=== PATIENT | female | born 1945 | race Caucasian/White ===

== ENCOUNTER 2018-07-17 15:01 | Observation (INO) | payer MEDICARE ==
[~2018-07-17] VITALS: Ht 157.5 cm; Wt 70.5 kg
--- NOTE | 2018-07-17 15:07 | NUR ---
BIB PRIVATE VEHICLE, AND WC TO ER #[id number]. PATIENT HAD SYNCOPAL EPISODE ON THE WAY HOME FROM HAVING AN ENDOSCOPY. PATIENT IS AROUSABLE, BUT LETHARGIC. AT THE BEDSIDE.
[2018-07-17 15:16] LABS: BASOPHILS % (AUTO) 0.4 % (0-1); EOSINOPHILS # (AUTO) 0.1 X10'3 (0-0.9); EOSINOPHILS % (AUTO) 0.8 % (0-6); HEMATOCRIT 42.2 % (35.0-45.0); HEMOGLOBIN 14.2 g/dl (12.0-16.0); LYMPHOCYTES # (AUTO) 3.6 X10'3 (1.1-4.8); LYMPHOCYTES % (AUTO) 42.3 % (21-51); MEAN CORPUSCULAR HGB CONC 33.7 g/dL (33.0-36.5); MEAN PLATELET VOLUME 8.3 FL (7.4-10.4); MONOCYTES # (AUTO) 0.6 X10'3 (0-0.9); MONOCYTES % (AUTO) 7.1 % (2-12); NEUTROPHILS # (AUTO) 4.2 X10'3 (1.8-7.7); NEUTROPHILS % (AUTO) 49.4 % (42-75); PLATELET COUNT 270 X10'3 (140-440); RED BLOOD COUNT 4.75 X10'6 (4.20-5.60); RED CELL DISTRIBUTION WIDTH 12.3 % (11.5-14.5); WHITE BLOOD COUNT 8.4 X10'3 (4.5-11.0)
[2018-07-17] MEDS ORDERED: ondansetron/PF 4mg/2ml inj IV ONE (15:20)
[2018-07-17 15:29] LABS: ALANINE AMINOTRANSFERASE 22 U/L (12-78); ALBUMIN 3.7 G/DL (3.4-5.0); ALBUMIN/GLOBULIN RATIO 1.1 (1.1-1.5); ALKALINE PHOSPHATASE 66 IU/L (46-116); ANION GAP 8 (8-16); ASPARTATE AMINO TRANSFERASE 17 U/L (10-37); BILIRUBIN,TOTAL 0.4 MG/DL (0.1-1.0); BLOOD UREA NITROGEN 6 MG/DL (7-18); BUN/CREATININE RATIO 10.5 (6.6-38.0); CHLORIDE 105 MMOL/L (99-107); CREATININE 0.57 MG/DL (0.40-0.90); GLUCOSE 124 MG/DL (70-104); POTASSIUM 3.6 MMOL/L (3.5-5.1); SODIUM 140 MMOL/L (135-145); TOTAL CARBON DIOXIDE 27.5 MMOL/L (24-32); TOTAL PROTEIN 7.2 G/DL (6.4-8.2); eGFR > 90 ML/MIN
[2018-07-17 15:32] LABS: INR 1.1 INR; PARTIAL THROMBOPLASTIN TIME 23 SECONDS (22-32); PROTHROMBIN TIME 10.7 SECONDS (9.0-12.0)
[2018-07-17] MEDS ORDERED: ONDA4TAB6 PO (16:16)
--- NOTE | 2018-07-17 16:20 | NUR ---
ORTHOSTATIC VITALS ATTEMPTED. PATIENT VERY DIZZY/SYNCOPAL WHEN ASSISTED TO SITTING POSITION. BP IN RECLINING POSITION 138/65.
[2018-07-17] MEDS ORDERED: ondansetron/PF 4mg/2ml inj IV PRN (16:45)
[2018-07-17] MEDS ORDERED: mag hydrox/Alum hydrox/simeth 30ml oral suspension PO PRN (16:45)
[2018-07-17] MEDS ORDERED: acetaminophen 325mg tablet PO PRN ×2 (16:45)
[2018-07-17] MEDS ORDERED: magnesium hydroxide 30ml (MOM) UD suspension PO PRN (16:45)
[2018-07-17] MEDS ORDERED: magnesium 4gm in 100ml NS 100 ML IV PRN (16:45)
[2018-07-17] MEDS ORDERED: potassium Cl 20 mEq SR tablet PO PRN ×2 (16:45)
[2018-07-17] MEDS ORDERED: magnesium Cl slow-release 64mg tablet PO PRN (16:45)
[2018-07-17] MEDS ORDERED: potassium Cl 40MEQ/NS 500ml 500 ML IV PRN ×2 (16:45)
[2018-07-17] MEDS ORDERED: magnesium 2GM in 50ml NS 50 ML IV PRN (16:45)
[2018-07-17] MEDS: normal saline 1000ml 1,000 ML IV SCH (17:00)
--- NOTE | 2018-07-17 17:26 | NUR ---
UP TO BSC AND URINATED LARGE AMOUNT. HOSPITALIST HERE TO SEE AND INTERVIEW PATIENT.
[2018-07-17] MEDS ORDERED: TRAZ-218 PO (17:43)
[2018-07-17] MEDS ORDERED: ALPR-623 PO (17:43)
[2018-07-17] MEDS ORDERED: ALPRAZolam 0.25mg tablet PO PRN (19:05)
[2018-07-17] MEDS ORDERED: traZODone 50mg tablet PO PRN (19:05)
--- NOTE | 2018-07-17 19:55 | NUR ---
Received Report in regards to patient from Bill SILVA. States patient is alert and oriented. Will asses when she arrives.
[2018-07-17 20:00] VITALS: BP_SYST 133; BP_SYST 140; BP_SYST 149; BP_DIAS 63; BP_DIAS 68; BP_DIAS 70
[2018-07-17] MEDS: famotidine 20mg tablet PO SCH (20:00)
--- NOTE | 2018-07-17 20:38 | NUR ---
Patient states that she is on trial off of her antacids due to possible false negative H. Pylori. States has had H. Pylori 3 times prior. Refused pepcid at this time. Will continue to monitor.
[2018-07-18] VITALS: BP 151/65
--- NOTE | 2018-07-18 | NUR ---
During assessment question patient states that she has had syncopal episodes when she has low blood sugar. Checked blood sugar which was 86 provided snack. Patient states that last times she had burning and indigeestion like she is having now she had to have stent placed. States now that she has numbness and tingling in her right forearm to hand and stiffness and from groin to toes on medial side of right leg. Notified Dr. Fuentes due to new symptoms, states start neuro checks. Notified him that the first set is negative. Will continue to monitor.
[2018-07-18] MEDS: normal saline 1000ml 1,000 ML IV SCH (03:05)
[2018-07-18 03:46] LABS: ALBUMIN 2.7 G/DL (3.4-5.0); ANION GAP 7 (8-16); BLOOD UREA NITROGEN 8 MG/DL (7-18); BUN/CREATININE RATIO 12.7 (6.6-38.0); CALCIUM 8.1 MG/DL (8.5-10.1); CHLORIDE 111 MMOL/L (99-107); CREATININE 0.63 MG/DL (0.40-0.90); GLUCOSE 97 MG/DL (70-104); MAGNESIUM 1.8 MG/DL (1.5-2.4); POTASSIUM 3.7 MMOL/L (3.5-5.1); SODIUM 142 MMOL/L (135-145); eGFR > 90 ML/MIN
[2018-07-18 05:07] LABS: BASOPHILS % (AUTO) 0.2 % (0-1); EOSINOPHILS # (AUTO) 0.1 X10'3 (0-0.9); EOSINOPHILS % (AUTO) 0.9 % (0-6); HEMATOCRIT 36.2 % (35.0-45.0); HEMOGLOBIN 12.6 g/dl (12.0-16.0); LYMPHOCYTES # (AUTO) 2.4 X10'3 (1.1-4.8); LYMPHOCYTES % (AUTO) 27.2 % (21-51); MEAN CORPUSCULAR HEMOGLOBIN 30.8 PG (27.0-31.0); MEAN CORPUSCULAR HGB CONC 34.7 g/dL (33.0-36.5); MEAN CORPUSCULAR VOLUME 88.6 FL (78-98); MEAN PLATELET VOLUME 8.3 FL (7.4-10.4); MONOCYTES # (AUTO) 0.8 X10'3 (0-0.9); MONOCYTES % (AUTO) 9.7 % (2-12); NEUTROPHILS # (AUTO) 5.4 X10'3 (1.8-7.7); PLATELET COUNT 237 X10'3 (140-440); RED BLOOD COUNT 4.08 X10'6 (4.20-5.60); RED CELL DISTRIBUTION WIDTH 12.7 % (11.5-14.5); WHITE BLOOD COUNT 8.8 X10'3 (4.5-11.0)
[2018-07-18 05:30] VITALS: BP 128/61
--- NOTE | 2018-07-18 06:15 | NUR ---
Patient in room [facility]. I have received report from Yoselin SILVA and had the opportunity to ask questions and assume patient care.
--- NOTE | 2018-07-18 06:42 | NUR ---
Problems reprioritized. Patient report given, questions answered & plan of care reviewed with Paulina SILVA. Patient resting eyes closed respirations even.
[2018-07-18 07:00] VITALS: BP 128/67
[2018-07-18] MEDS: famotidine 20mg tablet PO SCH (07:53)
[2018-07-18] MEDS ORDERED: K and/or MAG REPLACEMENT MC SCH (08:00)
--- NOTE | 2018-07-18 14:59 | NUR ---
patient ambulating x3 no complaints of syncope. seen by Dr fuentes, is for DC. ALl instructions given to patient . present. . patient appears to be stable for DC. DC home via private car to home with .
[2018-07-18 15:03] VITALS: BP_SYST 131; BP_SYST 133; BP_SYST 135; BP_DIAS 59; BP_DIAS 71; BP_DIAS 73
== END 2018-07-18 14:57 | disposition home or self-care (01) ==
LOC: ER 15:02 → ED HOLD 16:44 → CMPBEDREQ 19:55 → SUR 3N 20:30
PROVIDERS: ADMIT Hospitalist; ATTEND Hospitalist
DX: R55 Syncope and collapse (principal); R53.1 Weakness; K29.70 Gastritis, unspecified, without bleeding; F41.9 Anxiety disorder, unspecified; E86.0 Dehydration; G89.29 Other chronic pain; R10.9 Unspecified abdominal pain
CPT/HCPCS: 36415; 71045; 80048; 80053; 82948; 83735; 84484; 85025; 85610; 85730; 86885; 86900; 86901; 86920; 87070; 93005; 96361; 96374; 99291; G0378; J2405; J7030

== ENCOUNTER 2021-04-18 18:00 | Inpatient (IN) | payer MEDICARE ==
[~2021-04-18] VITALS: Ht 160 cm; Wt 66.4 kg
[~2021-04-18 18:00] MED LIST: ALPR-623 PO; TRAZ-251 PO
[2021-04-18 20:00] LABS: BASOPHILS # (AUTO) 0.1 X10'3 (0-0.2); BASOPHILS % (AUTO) 0.7 % (0-1); EOSINOPHILS # (AUTO) 0.1 X10'3 (0-0.9); HEMOGLOBIN 14.7 g/dl (12.0-16.0); LYMPHOCYTES # (AUTO) 2.7 X10'3 (1.1-4.8); MEAN CORPUSCULAR HEMOGLOBIN 30.4 PG (27.0-31.0); MEAN CORPUSCULAR HGB CONC 33.5 g/dL (33.0-36.5); MEAN CORPUSCULAR VOLUME 90.6 FL (78-98); MEAN PLATELET VOLUME 7.9 FL (7.4-10.4); MONOCYTES # (AUTO) 0.9 X10'3 (0-0.9); MONOCYTES % (AUTO) 9.3 % (2-12); NEUTROPHILS # (AUTO) 5.9 X10'3 (1.8-7.7); PLATELET COUNT 371 X10'3 (140-440); RED BLOOD COUNT 4.85 X10'6 (4.20-5.60); RED CELL DISTRIBUTION WIDTH 13.3 % (11.5-14.5); WHITE BLOOD COUNT 9.6 X10'3 (4.5-11.0)
[2021-04-18] MEDS ORDERED: aspirin 325mg tablet PO ONE (22:55)
[2021-04-18 23:06] LABS: ALANINE AMINOTRANSFERASE 25 U/L (12-78); ALKALINE PHOSPHATASE 60 IU/L (46-116); ANION GAP 11 (8-16); ASPARTATE AMINO TRANSFERASE 16 U/L (10-37); BILIRUBIN,TOTAL 0.3 MG/DL (0.1-1.0); BLOOD UREA NITROGEN 8 MG/DL (7-18); BUN/CREATININE RATIO 10.5 (6.6-38.0); CALCIUM 9.5 MG/DL (8.5-10.1); CHLORIDE 104 MMOL/L (99-107); CREATININE 0.76 MG/DL (0.40-0.90); GLUCOSE 102 MG/DL (70-104); SODIUM 141 MMOL/L (135-145); TOTAL CARBON DIOXIDE 26.2 MMOL/L (24-32); eGFR 74 ML/MIN
[2021-04-19] MEDS ORDERED: diphenhydrAMINE 50 mg/ml inj IV PRN (01:30)
[2021-04-19] MEDS ORDERED: acetaminophen 325mg tablet PO PRN ×2 (01:30)
[2021-04-19] MEDS ORDERED: mag hydrox/Alum hydrox/simeth 30ml oral suspension PO PRN (01:30)
[2021-04-19] MEDS ORDERED: morphine 2 MG/ML inj. syringe IV PRN ×2 (01:30)
[2021-04-19] MEDS ORDERED: ondansetron/PF 4mg/2ml inj IV PRN (01:30)
[2021-04-19] MEDS ORDERED: ondansetron 4mg rapidly disintigrating tab PO PRN (01:30)
[2021-04-19] MEDS ORDERED: HYDROcodone/acetaminophen 5mg/325mg tablet PO PRN (01:30)
[2021-04-19] MEDS ORDERED: acetaminophen 650mg rectal suppository RC PRN (01:30)
[2021-04-19] MEDS ORDERED: diphenhydrAMINE 25mg capsule PO PRN (01:30)
[2021-04-19] MEDS ORDERED: normal saline 1000ml 1,000 ML IV SCH (01:30)
[2021-04-19] MEDS ORDERED: magnesium hydroxide 30ml (MOM) UD suspension PO PRN (01:30)
[2021-04-19] MEDS ORDERED: bisacodyl 10mg suppository rectal RC PRN (01:30)
[2021-04-19] MEDS ORDERED: metoprolol tartrate 1mg/ml inj IV PRN (01:40)
[2021-04-19] MEDS ORDERED: nitroGLYCERIN 0.4mg SUBLingual tab SL PRN (01:40)
[2021-04-19] MEDS ORDERED: aminophylline 250mg/10ml inj. IV PRN (01:40)
[2021-04-19] MEDS ORDERED: regadenoson 0.4mg/5ml syringe IV PRN (01:40)
[2021-04-19 02:06] LABS: HEMOGLOBIN A1C 5.7 % (4.5-6.2)
[2021-04-19 02:16] LABS: CREATINE KINASE 54 U/L (26-192); LIPASE 278 U/L (73-393); MAGNESIUM 2.4 MG/DL (1.5-2.4); PHOSPHORUS 3.7 MG/DL (2.3-4.5)
[2021-04-19 02:32] LABS: PARTIAL THROMBOPLASTIN TIME 24 SECONDS (22-32)
[2021-04-19 02:34] LABS: D-DIMER < 0.19 MG/L FEU (0-0.50)
[2021-04-19] MEDS: pantoprazole 40mg Tablet.DR PO SCH (07:30)
[2021-04-19] MEDS: aspirin 81mg, enteric-coated 1 TAB TABLET.DR PO SCH (08:00)
[2021-04-19] MEDS: heparin, porcine 5000 units/ml vial SQ SCH ×2 (08:00→17:22)
--- NOTE | 2021-04-19 08:27 | NUR ---
report called to Luis Angel SILVA
[2021-04-19] MEDS: atorvastatin 20mg tablet PO SCH (09:50)
[2021-04-19] MEDS: docusate sod 100mg capsule PO SCH ×2 (09:50→20:00)
[2021-04-19] MEDS: losartan 25mg tablet PO SCH (09:50)
[2021-04-19] MEDS ORDERED: ALPR-624 PO (10:37)
[2021-04-19] MEDS ORDERED: TRAZ-251 PO (10:37)
[2021-04-19] MEDS: nitroGLYCERIN 0.1mg/hour patch TD SCH (11:43)
[2021-04-19] MEDS ORDERED: nitroGLYCERIN-Tridil 50MG/D5W 250 ML IV ONE (14:49)
[2021-04-19] MEDS ORDERED: verapamil 2.5 mg/ml inj IV ONE (14:50)
[2021-04-19] MEDS ORDERED: iohexol 350MG/ML 100ml bottle IV ONE (14:50)
[2021-04-19] MEDS ORDERED: LIDOcaine 1% (10mg/ml)w/preservative injection 20ml MDV ONE (14:50)
[2021-04-19] MEDS ORDERED: fentaNYL/PF 50MCG/1 ML 2ML syringe ONE (14:50)
[2021-04-19] MEDS ORDERED: midazolam 1 mg/ML 2ml injection ONE (14:50)
[2021-04-19] MEDS ORDERED: heparin 1,000unit/ml 10ml vial 10 ML ONE (14:50)
[2021-04-19 15:40] VITALS: BP 106/62
[2021-04-19] MEDS ORDERED: traZODone 50mg tablet PO PRN (17:30)
[2021-04-19] MEDS ORDERED: ALPRAZolam 0.5mg tablet PO PRN (17:30)
[2021-04-19 18:00] VITALS: BP_SYST 113; BP_SYST 120; BP_DIAS 64; BP_DIAS 73
[2021-04-19] MEDS ORDERED: temazepam 15mg capsule PO PRN (21:00)
[2021-04-19 22:00] VITALS: BP 99/54
[2021-04-20 06:00] VITALS: BP 103/65
[2021-04-20 06:52] LABS: BASOPHILS % (AUTO) 0.3 % (0-1); EOSINOPHILS # (AUTO) 0.2 X10'3 (0-0.9); EOSINOPHILS % (AUTO) 1.7 % (0-6); HEMATOCRIT 37.9 % (35.0-45.0); HEMOGLOBIN 13.2 g/dl (12.0-16.0); LYMPHOCYTES # (AUTO) 2.5 X10'3 (1.1-4.8); LYMPHOCYTES % (AUTO) 24.1 % (21-51); MEAN CORPUSCULAR HEMOGLOBIN 31.3 PG (27.0-31.0); MEAN CORPUSCULAR HGB CONC 34.8 g/dL (33.0-36.5); MEAN CORPUSCULAR VOLUME 90.1 FL (78-98); MEAN PLATELET VOLUME 7.9 FL (7.4-10.4); MONOCYTES # (AUTO) 0.8 X10'3 (0-0.9); MONOCYTES % (AUTO) 8.2 % (2-12); NEUTROPHILS # (AUTO) 6.7 X10'3 (1.8-7.7); NEUTROPHILS % (AUTO) 65.7 % (42-75); PLATELET COUNT 336 X10'3 (140-440); RED BLOOD COUNT 4.21 X10'6 (4.20-5.60); RED CELL DISTRIBUTION WIDTH 13.2 % (11.5-14.5); WHITE BLOOD COUNT 10.2 X10'3 (4.5-11.0)
[2021-04-20 07:06] LABS: ALANINE AMINOTRANSFERASE 21 U/L (12-78); ALBUMIN 3.2 G/DL (3.4-5.0); ALBUMIN/GLOBULIN RATIO 0.9 (1.1-1.5); ALKALINE PHOSPHATASE 54 IU/L (46-116); ANION GAP 6 (8-16); ASPARTATE AMINO TRANSFERASE 13 U/L (10-37); BILIRUBIN,TOTAL 0.4 MG/DL (0.1-1.0); BLOOD UREA NITROGEN 14 MG/DL (7-18); BUN/CREATININE RATIO 18.4 (6.6-38.0); CHLORIDE 106 MMOL/L (99-107); CHOL/HDL RATIO 3.7 (0.00-4.99); CHOLESTEROL 242 MG/DL (0-200); CREATININE 0.76 MG/DL (0.40-0.90); GLUCOSE 103 MG/DL (70-104); HDL CHOLESTEROL 66 MG/DL (35-60); LDL CHOLESTEROL 156 MG/DL (50-100); POTASSIUM 4.2 MMOL/L (3.5-5.1); SODIUM 141 MMOL/L (135-145); TOTAL CARBON DIOXIDE 28.9 MMOL/L (24-32); TOTAL PROTEIN 6.7 G/DL (6.4-8.2); TRIGLYCERIDES 91 MG/DL (20-135); eGFR 74 ML/MIN
[2021-04-20] MEDS: atorvastatin 20mg tablet PO SCH (08:09)
[2021-04-20] MEDS: nitroGLYCERIN 0.1mg/hour patch TD SCH (08:09)
[2021-04-20] MEDS: heparin, porcine 5000 units/ml vial SQ SCH ×2 (08:09)
[2021-04-20 08:10] VITALS: BP_SYST 123
[2021-04-20] MEDS: aspirin 81mg, enteric-coated 1 TAB TABLET.DR PO SCH (08:10)
[2021-04-20] MEDS: docusate sod 100mg capsule PO SCH (08:10)
[2021-04-20] MEDS: losartan 25mg tablet PO SCH (08:10)
[2021-04-20] MEDS: pantoprazole 40mg Tablet.DR PO SCH (08:11)
[2021-04-20] MEDS ORDERED: ATOR20TA66 PO (10:29)
== END 2021-04-20 13:20 | disposition home or self-care (01) | DRG 286 ==
LOC: ER 18:02 → UNDOADMIN 04-19 01:39 → ED HOLD 04-19 01:39 → EDBEDREQ 04-19 08:03 → PCU 3S 04-19 08:40 → ED HOLD 04-19 08:40
PROVIDERS: ADMIT Family Medicine; ATTEND Family Medicine
PROC: B2111ZZ Fluoroscopy of Multiple Coronary Arteries using Low Osmolar Contrast (ICD-10-PCS; principal; 2021-04-19)
PROC: 4A023N7 Measurement of Cardiac Sampling and Pressure, Left Heart, Percutaneous Approach (ICD-10-PCS; 2021-04-19)
DX: I11.0 Hypertensive heart disease with heart failure (principal); I50.33 Acute on chronic diastolic (congestive) heart failure; I16.1 Hypertensive emergency; F41.9 Anxiety disorder, unspecified; E78.00 Pure hypercholesterolemia, unspecified; E78.5 Hyperlipidemia, unspecified; F32.A Depression, unspecified; U09.9 Post COVID-19 condition, unspecified; Z20.822 Contact with and (suspected) exposure to COVID-19; I25.10 Atherosclerotic heart disease of native coronary artery without angina pectoris; Z82.3 Family history of stroke; Z82.49 Family history of ischemic heart disease and other diseases of the circulatory system; Z85.820 Personal history of malignant melanoma of skin; Z87.01 Personal history of pneumonia (recurrent); Z95.5 Presence of coronary angioplasty implant and graft; Z88.2 Allergy status to sulfonamides; Z88.8 Allergy status to other drugs, medicaments and biological substances; Z79.899 Other long term (current) drug therapy; Z90.49 Acquired absence of other specified parts of digestive tract
CPT/HCPCS: 36415; 71045; 80053; 80061; 82550; 83036; 83690; 83735; 83880; 84100; 84443; 84484; 85025; 85379; 85610; 85730; 87081; 87635; 93005; 93458; 99152; 99285; A4620; C1894; G0378; J1644; J2250; J3010; J3490; J7030; Q9967